=== PATIENT | male | born 1995 | race Caucasian/White ===

== ENCOUNTER → 2024-03-05 | Outpatient (CLI) | payer OTHER ==
[~2024-03-05] MED LIST: Cleocin HCl300 MG PO
[2024-03-08 14:06] LABS: APTIMA MEDIA TYPE Urine; C. TRACHOMATIS BY TMA Negative (Negative); N. GONORRHOEAE BY TMA Negative (Negative); SPECIMEN SOURCE Urine
== END ==
LOC: LAB 16:36 → LAB SHORT 16:36
PROVIDERS: Family Medicine
DX: R39.15 Urgency of urination (principal)
CPT/HCPCS: 87491; 87591